=== PATIENT | male | born 1980 | race Two or more races ===

== ENCOUNTER 2020-07-09 13:20 | Emergency (ER) | payer MEDICAID ==
[2020-07-09] MEDS ORDERED: Orphenadrine 100 MG Tab.ER PO ONE (14:03)
[2020-07-09] MEDS ORDERED: Ketorolac 60 MG/2 ML SDV IM ONE (14:03)
--- NOTE | 2020-07-09 14:09 | EDM.PDOC ---
ED HPI GENERAL MEDICAL PROBLEM - General Chief Complaint: Neck Problem Stated Complaint: RT SHOULDER PAIN Time Seen by Provider: 07/09/20 13:39 Source of Information: Reports: Patient, RN Notes Reviewed History Limitations: Reports: No Limitations - History of Present Illness INITIAL COMMENTS - FREE TEXT/NARRATIVE: Patient is a 40-year-old male who presents to the ED for the evaluation of his neck pain. He notes that he woke up with right posterior neck pain on Thursday morning, he states that when he turns his head to either side, it sends a sharp shooting pain down his right neck and into his shoulder. He denies any trauma or injury to this area. He went to the walk-in clinic yesterday, and he notes that they swabbed his throat but did not do much else for him. He has been trying ibuprofen at home, icing it, massaging it and the ibuprofen seem to help the best. He denies any fevers or chills, cough or shortness of breath, nausea/vomiting/diarrhea. Right Neck Pain Score (Numeric/FACES): 5 - Related Data Allergies Allergy/AdvReac Type Severity Reaction Status Date / Time No Known Allergies Allergy Verified 07/09/20 13:39 Home Meds: Home Meds Naproxen [Naprosyn] 500 mg PO Q12HR #14 tab 07/09/20 [Rx] Orphenadrine [Norflex] 100 mg PO BID PRN #14 tab 07/09/20 [Rx] Past Medical History - Past Health History Medical/Surgical History: Denies Medical/Surgical History Social & Family History - Family History Family Medical History: No Pertinent Family History - Caffeine Use Caffeine Use: Reports: Coffee - Living Situation & Occupation Living situation: Reports: , with Spouse, with Family Occupation: Employed ED ROS GENERAL - Review of Systems Review Of Systems: Comprehensive ROS is negative, except as noted in HPI. ED EXAM, UPPER BACK/NECK PAIN - Physical Exam Exam: See Below Exam Limited By: No Limitations General Appearance: Alert, WD/WN, No Apparent Distress Eye Exam: Bilateral Eye: EOMI, Normal Inspection, PERRL Throat/Mouth Exam: Normal Inspection, Normal Lips, Normal Teeth, Normal Gums, Normal Oropharynx, Normal Voice, No Airway Compromise Neck Exam: Normal Alignment, Normal Inspection, Limited Range of Motion (d/t pain in posterior nect), Stiff Neck (to right posterior neck) Nexus Criteria: No: Posterior, Midline Cervical Tenderness, Evidence of Intoxication, Altered Level of Consciousness, Focal Neurological Deficit, Painful Distraction Injuries Cardiovascular/Respiratory: Regular Rate, Rhythm, No M/R/G, Normal Breath Sounds, No Respiratory Distress Extremities: Normal Inspection, Normal Capillary Refill Neurologic: No Motor/Sensory Deficits, Alert, Normal Mood/Affect, Oriented x 3 Psychiatric: Normal Affect, Normal Mood Skin Exam: Normal Color, Warm/Dry Course - Vital Signs Last Recorded V/S: Last Vital Signs Temp 98.6 F 07/09/20 13:34 Pulse 67 07/09/20 13:34 Resp 18 07/09/20 13:34 BP 125/82 07/09/20 13:34 Pulse Ox 99 07/09/20 13:34 - Orders/Labs/Meds Meds: Medications Discontinued Medications Generic Name Dose Route Start Last Admin Trade Name Freq PRN Reason Stop Dose Admin Ketorolac Tromethamine 60 mg 07/09/20 14:03 07/09/20 14:26 Ketorolac 60 Mg/2 Ml Sdv IM 07/09/20 14:04 60 mg ONETIME ONE Administration Orphenadrine Citrate 100 mg 07/09/20 14:03 07/09/20 14:26 Orphenadrine 100 Mg Tab.Er PO 07/09/20 14:04 100 mg ONETIME ONE Administration - Re-Assessments/Exams Free Text/Narrative Re-Assessment/Exam: 07/09/20 14:09 Patient presents to the ED for his neck/right shoulder pain. I do suspect more of a torticollis type injury. Have ordered Toradol, Norflex for ongoing management. Plan is to send the patient home with possible Naprosyn and Norflex for nighttime use. Patient seems amenable to this plan at this time. 07/09/20 14:53 Patient states he is feeling much better with the medicines that have been given, we will go ahead and discharge him home with general conservative recommendations, a prescription for Naprosyn and Norflex. Departure - Departure Time of Disposition: 14:54 Disposition: Home, Self-Care 01 Condition: Good Clinical Impression: Torticollis - Discharge Information *PRESCRIPTION DRUG MONITORING PROGRAM REVIEWED*: No *COPY OF PRESCRIPTION DRUG MONITORING REPORT IN PATIENT MARILYNN: No Prescriptions: Naproxen [Naprosyn] 500 mg PO Q12HR #14 tab Orphenadrine [Norflex] 100 mg PO BID PRN #14 tab PRN Reason: Spasms Instructions: Acute Torticollis, Adult Referrals: PCP,None [Primary Care Provider] - Forms: ED Department Discharge Additional Instructions: You were seen in this ER for your posterior neck pain. This is most likely due to a musculoskeletal strain in nature you were given a injection of an in the muscle anti-inflammatory, and a muscle relaxer, this seemed to provide you pretty good relief of your symptoms. You have been given a prescription for an cjex-jyw-oaecuko anti-inflammatory, Naprosyn 1 tablet 2 times a day until gone. You were given a prescription for a muscle relaxer, Norflex or orphenadrine, 1 tablet 2 times a day as needed for further muscle spasm/stiffness. This Norflex medication may cause some sleepiness, so please caution use during the day, if it makes you too sleepy, you may take it at nighttime only for muscle stiffness relief. This medication [facility] electronically [facility] the [facility]. You may continue to use ice/heat to the area to provide further relief, you may also utilize massage to try to provide further pain relief. If your pain is not much better roughly in 1 week's time, recommend you seek care for further evaluation and management. Please return to the ER at any time if symptoms change or worsen. Sepsis Event Note (ED) - Evaluation Sepsis Screening Result: No Definite Risk - Focused Exam Vital Signs: Vital Signs Temp Pulse Resp BP Pulse Ox 07/09/20 13:34 98.6 F 67 18 125/82 99
[2020-07-09 15:13] VITALS: BP 123/86; PULSE 86
== END 2020-07-09 15:04 | disposition home or self-care (01) ==
LOC: JD.ED 13:20
DX: M43.6 Torticollis (principal)
CPT/HCPCS: 96372; 99283; A9270; J1885

== ENCOUNTER 2021-02-16 16:20 | Emergency (ER) | payer MEDICAID ==
[2021-02-16 16:54] VITALS: BP 120/79; PULSE 89
--- NOTE | 2021-02-16 17:33 | EDM.PDOC ---
ED HPI GENERAL MEDICAL PROBLEM - General Chief Complaint: Respiratory Problem Stated Complaint: COVID +/SOB Time Seen by Provider: 02/16/21 17:16 Source of Information: Reports: Patient, RN Notes Reviewed History Limitations: Reports: No Limitations - History of Present Illness INITIAL COMMENTS - FREE TEXT/NARRATIVE: Patient is a 40-year-old male who presents to the ER for his ongoing COVID-19 symptoms. States he has been symptomatic for 1 week. Notes that he just does not think he is getting better. O2 sats are 94% on room air. Patient appears to be in no visible respiratory distress. Is complaining of feeling chronically short of breath, has been using Tylenol and ibuprofen with little benefit also using some sfcb-yhw-sinozdb Robitussin for cough management. States that he has issues sometimes with nausea, when he smells some food in the kitchen, he will get nauseous but no vomiting. He states that he has been having a little bit of diarrhea as well. Patient has been having intermittent fevers, but no chills, a dry nonproductive cough some mild shortness of breath some mild nausea with no vomiting, and some diarrhea. 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 - Related Data Allergies Allergy/AdvReac Type Severity Reaction Status Date / Time No Known Allergies Allergy Verified 02/16/21 16:54 Home Meds: Home Meds Ondansetron [Zofran ODT] 4 mg PO Q8H PRN #15 tab.dis 02/16/21 [Rx] Past Medical History - Past Health History Medical/Surgical History: Denies Medical/Surgical History - Infectious Disease History Infectious Disease History: Reports: Novel Coronavirus Social & Family History - Family History Family Medical History: No Pertinent Family History - Tobacco Use Tobacco Use Status *Q: Never Tobacco User Second Hand Smoke Exposure: No - Caffeine Use Caffeine Use: Reports: Coffee - Alcohol Use Days Per Week of Alcohol Use: 7 Number of Drinks Per Day: 3 Total Drinks Per Week: 21 - Recreational Drug Use Recreational Drug Use: No - Living Situation & Occupation Living situation: Reports: , with Spouse, with Family Occupation: Employed ED ROS GENERAL - Review of Systems Review Of Systems: Comprehensive ROS is negative, except as noted in HPI. ED EXAM, GENERAL - Physical Exam Exam: See Below Exam Limited By: No Limitations General Appearance: Alert, WD/WN, No Apparent Distress Respiratory/Chest: No Respiratory Distress, Lungs Clear, Normal Breath Sounds, No Accessory Muscle Use, Chest Non-Tender Cardiovascular: Normal Peripheral Pulses, Regular Rate, Rhythm, No Edema Peripheral Pulses: 2+: Radial (L), Radial (R) GI/Abdominal: Normal Bowel Sounds, Soft, Non-Tender, No Distention, No Mass Neurological: Alert, Oriented, Normal Cognition, No Motor/Sensory Deficits Psychiatric: Normal Affect, Normal Mood Skin Exam: Warm, Dry, Intact, Normal Color, No Rash Course - Vital Signs Last Recorded V/S: Last Vital Signs Temp 101.2 F H 02/16/21 16:50 Pulse 89 02/16/21 16:50 Resp 21 H 02/16/21 16:50 BP 120/79 02/16/21 16:50 Pulse Ox 94 L 02/16/21 16:50 - Orders/Labs/Meds Labs: Laboratory Tests 02/16/21 02/16/21 Range/Units 17:31 17:31 WBC 5.60 (4.23-9.07) K/mm3 RBC 5.19 (4.63-6.08) M/mm3 Hgb 15.0 (13.7-17.5) gm/dl Hct 44.2 (40.1-51.0) % MCV 85.2 (79.0-92.2) fl MCH 28.9 (25.7-32.2) pg MCHC 33.9 (32.2-35.5) g/dl RDW Std Deviation 38.4 (35.1-43.9) fL Plt Count 174 (163-337) K/mm3 MPV 9.9 (9.4-12.3) fl Neut % (Auto) 78.9 H (34.0-67.9) % Lymph % (Auto) 15.7 L (21.8-53.1) % Dickens % (Auto) 5.0 L (5.3-12.2) % Eos % (Auto) 0.2 L (0.8-7.0) Baso % (Auto) 0.0 L (0.1-1.2) % Neut # (Auto) 4.42 (1.78-5.38) K/mm3 Lymph # (Auto) 0.88 L (1.32-3.57) K/mm3 Dickens # (Auto) 0.28 L (0.30-0.82) K/mm3 Eos # (Auto) 0.01 L (0.04-0.54) K/mm3 Baso # (Auto) 0.00 L (0.01-0.08) K/mm3 Sodium 137 (136-145) mEq/L Potassium 4.1 (3.5-5.1) mEq/L Chloride 98 (98-107) mEq/L Carbon Dioxide 30 (21-32) mEq/L Anion Gap 13.1 (5-15) BUN 13 (7-18) mg/dL Creatinine 0.9 (0.7-1.3) mg/dL Est Cr Clr Drug Dosing 122.15 mL/min Estimated GFR (MDRD) > 60 (>60) mL/min BUN/Creatinine Ratio 14.4 (14-18) Glucose 109 H (70-99) mg/dL Calcium 8.0 L (8.5-10.1) mg/dL Total Bilirubin 0.4 (0.2-1.0) mg/dL AST 28 (15-37) U/L ALT 37 (16-63) U/L Alkaline Phosphatase 86 (46-116) U/L C-Reactive Protein 2.2 H* (<1.0) mg/dL Total Protein 6.9 (6.4-8.2) g/dl Albumin 3.5 (3.4-5.0) g/dl Globulin 3.4 gm/dL Albumin/Globulin Ratio 1.0 (1-2) - Re-Assessments/Exams Free Text/Narrative Re-Assessment/Exam: 02/16/21 17:33 Patient presents to the ER for evaluation of his ongoing COVID-19 symptoms we will get a chest x-ray, and some basic labs. Patient has no major risk factors that would indicate that he would progressed to worsening disease. We will try to treat his symptoms, will get a prescription for Zofran for his reported nausea. 02/16/21 18:37 Patient's labs are fairly unremarkable, CRP is only 2.2. Chest x-ray shows some focal consolidation within the right upper lung as well as minimal density within the left lower lung findings most likely represent Covid pneumonia at this time. I will send the patient home with a prescription for Zofran, and have him follow conservative management. Departure - Departure Time of Disposition: 18:38 Disposition: Home, Self-Care Condition: Good Clinical Impression: COVID-19 - Discharge Information *PRESCRIPTION DRUG MONITORING PROGRAM REVIEWED*: No *COPY OF PRESCRIPTION DRUG MONITORING REPORT IN PATIENT MARILYNN: No Prescriptions: Ondansetron [Zofran ODT] 4 mg PO Q8H PRN #15 tab.dis PRN Reason: Nausea Instructions: 10 Things You Can Do to Manage Your COVID-19 Symptoms at Home - [facility] (10/19/2020), Prone Position Therapy Forms: ED Department Discharge Additional Instructions: You were seen in the ER today for ongoing and/or worsening respiratory symptoms. Your chest x-ray showed minimal signs of viral pneumonia; typical for COVID-19 at this time. Your oxygen levels were great at 94-95% on room air. You were given a prescription for Zofran, you may take 1 tablet dissolvable under your tongue every 8 hours as needed for ongoing nausea management. This medication was electronically sent to the [place] pharmacy located in the [facility] grocery store. Due to your positive Covid status, please call them after your discharge to let them know you will be needing to belt picker this prescription, so they can either bring it outside to you, or coordinate how to get this medication to you. Please try to increase your oral fluid intake, and eat multiple small meals throughout the day, to keep yourself healthy. You need to keep yourself nourished in order to fight off this disease. You can try a liquid diet like gatorade/powerade as well to get your electrolytes. You may take 500 mg Tylenol every hours 6 hours for pain/fever relief. Do not exceed 4000 mg Tylenol in a 24-hour time span. However, running a fever is your body's natural response to illness, and it allows the body to develop antibodies to disease, we are recommending trying to limit the use of Tylenol as much as possible to allow your body's natural immune response. Recommend you obtain a pulse oximeter and monitor your oxygen levels at home, you should place the monitor on your finger, and sit in a calm, quiet position for a few minutes and then record the number that is on the screen. If this consistently below 90% on room air without movement, this would be cause for concern to come back to the hospital for further management of your COVID-19 disease. Please follow all guidance set forth from [facility], regarding isolation purposes for your disease process. General isolation times are 10 days from when you started being symptomatic. Sepsis Event Note (ED) - Evaluation Sepsis Screening Result: No Definite Risk - Focused Exam Vital Signs: Vital Signs Temp Pulse Resp BP Pulse Ox 02/16/21 16:50 101.2 F H 89 21 H 120/79 94 L
--- NOTE | 2021-02-16 17:52 | CR ---
Chest: Portable view of the chest was obtained. Comparison: No prior chest imaging is available. Focal consolidation is seen within the right upper lung. Minimal densities are noted within left lower lung. Heart size and mediastinum are normal. Bony structures are unremarkable for the patient's age. Impression: 1. Focal consolidation within the right upper lung as well as minimal density within the left lower lung. Findings most likely represent COVID pneumonia if the patient has no symptoms to suggest bacterial pneumonia. Diagnostic code #3
== END 2021-02-16 18:45 | disposition home or self-care (01) ==
LOC: JD.ED 16:20
DX: U07.1 COVID-19 (principal)
CPT/HCPCS: 36415; 71045; 71045-26; 80053; 85025; 86140; 99283; 99283-25